=== PATIENT | male | born 1980 | race Caucasian/White ===

== ENCOUNTER 2020-03-11 20:29 | Emergency (ER) | payer SELFPAY ==
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
[2020-03-11 22:05] VITALS: BP 127/87; PULSE 80; TEMP 98.1; BMI 25.0
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
[2020-03-12] MEDS ORDERED: ACETAMINOPHEN 325 MG TABLET (FP) PO ONE (00:05)
[2020-03-12] MEDS ORDERED: ACETAMINOPHEN 325 MG TABLET (FP) ONE (00:17)
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
== END 2020-03-12 01:06 | disposition home or self-care (01) ==
LOC: JER 20:29
DX: S49.91XA Unspecified injury of right shoulder and upper arm, initial encounter (principal)
CPT/HCPCS: 70450-TC; 71046-TC-FY; 72125-TC; 72128-TC; 73010-TC-FY; 73030-TC-RT-FY; 99285-25